=== PATIENT | male | born 1960 | race Caucasian/White ===

== ENCOUNTER → 2016-12-25 | Outpatient (CLI) | payer MEDICARE, OTHER ==
[2016-12-25 11:55] LABS: Appearance,Urine Clear (Clear); Bilirubin,Urine Negative (Negative); Glucose,Urine (UA) Negative (Negative); Ketones,Urine Negative (Negative); Leukocyte Esterase,Urine Negative (Negative); Nitrite,Urine Negative (Negative); PH, Urine 5.5 (5.0-8.0); Protein,Urine Negative (Negative); Specific Gravity,Urine 1.016 (1.001-1.035); UA Billing (MACRO vs. MICRO) CHEM; Urobilinogen,Urine <2.0 mg/dL (<2.0)
== END | disposition home or self-care (01) ==
LOC: LABPAT 10:40
PROVIDERS: ATTEND Orthopaedic Surgery
DX: Z01.812 Encounter for preprocedural laboratory examination (principal)
CPT/HCPCS: 81003; 87070

== ENCOUNTER → 2016-12-29 | Outpatient (CLI) | payer MEDICARE, OTHER ==
[2016-12-29 09:59] LABS: ALT 130 U/L (21-72); AST 62 U/L (17-59); Alkaline Phosphatase 78 U/L (38-126); Anion Gap 14 mmol/L; Blood Urea Nitrogen 11 mg/dL (9-20); Calcium 9.5 mg/dL (8.4-10.2); Carbon Dioxide 27 mmol/L (22-30); Chloride 101 mmol/L (98-107); Glucose 104 mg/dL (74-99); Non-African American GFR(MDRD) >60 (>60 ml/min/1.73 sqM); Potassium 4.5 mmol/L (3.5-5.1); Sodium 142 mmol/L (137-145); Total Bilirubin 1.1 mg/dL (0.2-1.3); Total Protein 7.4 g/dL (6.3-8.2)
[2016-12-29 10:02] LABS: INR 0.9 (<1.1); Prothrombin Time 9.7 sec (9.0-12.0)
[2016-12-29 10:15] LABS: Aty Lym Flag Slight; CH 32.1; CHCM 34.2; HDW 2.54; HGB 16.1 gm/dL (13.0-17.5); MCH 30.9 pg (25.0-35.0); MCHC 32.8 g/dL (31.0-37.0); MCV 94.1 fL (80.0-100.0); Mean Platelet Volume 6.8; RBC 5.21 m/uL (4.30-5.90); RDW 13.4 % (11.5-15.5); WBC 4.5 k/uL (3.8-10.6); WBC (Perox) 4.71
[2016-12-29 10:49] LABS: Add Differential Manual Differential
[2016-12-29 10:51] LABS: Nucleated Red Blood Cells 0 /100 WBC (0-0); Total Cells Counted 100
[2016-12-29 10:53] LABS: RBC Morphology Normal
== END | disposition home or self-care (01) ==
LOC: LABPAT 08:55
PROVIDERS: ATTEND Orthopaedic Surgery
DX: Z01.812 Encounter for preprocedural laboratory examination (principal); Z79.01 Long term (current) use of anticoagulants
CPT/HCPCS: 36415; 80053; 85025; 85610; 85730

== ENCOUNTER 2017-01-02 11:34 | Inpatient (IN) | payer MEDICARE, OTHER ==
[2016-12-21 08:23] VITALS: BMI 31.7
[~2017-01-02 11:34] MED LIST: ACETAMINOPHEN TAB 500 MG TAB PO ONE; DEXAMETHASONE SOD PHOSPHATE 10 MG/ML 1 ML VIAL IV ONE; HYDROmorphone 1 MG/ML 1 ML SYRINGE IVP PRN; MELOXICAM 7.5 MG TAB PO ONE; MIDAZOLAM 2 MG/2 ML VIAL IV PRN; ONDANSETRON 4 MG/2 ML VIAL IVP ONE; SCOPOLAMINE 1.5MG/72HR PATCH TRANSDERM ONE; TRANEXAMIC ACID 1,000 MG in SODIUM CHLORIDE 0.9% 100 ML IVPB ONE; ceFAZolin 2 GM in SODIUM CHLORIDE 0.9% 100 ML IVPB ONE
[2017-01-02] MEDS: LACTATED RINGERS 1,000 ML IV SCH ×2 (12:33→20:22)
[2017-01-02] MEDS ORDERED: LIDOCAINE 1% 20 ML VIAL (10MG/ML) FOR IV START INTRADERMA ONE (12:34)
[2017-01-02] MEDS ORDERED: MIDAZOLAM 2 MG/2 ML VIAL ONE (16:31)
[2017-01-02] MEDS ORDERED: SODIUM CHLORIDE 0.9% 100 ML BAG ONE (16:31)
[2017-01-02] MEDS ORDERED: LIDOCAINE 1% INJ 10MG/ML (20 ML MDV) ONE (16:31)
[2017-01-02] MEDS ORDERED: TRANEXAMIC ACID 1,000 MG/10 ML VIAL ONE (16:31)
[2017-01-02] MEDS ORDERED: fentaNYL (PF) 50 MCG/ML 2 ML AMP ONE (16:31)
[2017-01-02] MEDS ORDERED: diphenhydrAMINE 50 MG/ML 1 ML VIAL ONE (16:31)
[2017-01-02] MEDS ORDERED: PROPOFOL 10 MG/ML 20 ML VIAL IV ONE (16:31)
[2017-01-02] MEDS ORDERED: LACTATED RINGERS 1,000 ML IV ONE ×3 (16:49→17:25)
[2017-01-02] MEDS: ROPIVACAINE 246.25 MG, EPINEPHrine 0.5 MG, KETOROLAC 30 MG, cloNIDine HCL/PF 80 MCG, WA... MISCELLANE ONE ×10 (16:59→17:21)
[2017-01-02] MEDS ORDERED: ceFAZolin 3,000 MG in SODIUM CHLORIDE 0.9% IRRIGATIO 3,000 ML IRRIGATION ONE (17:00)
--- NOTE | 2017-01-02 17:46 | P.OP ---
Date of Procedure: 01/02/17 Preoperative Diagnosis: Severe osteoarthritis left knee Postoperative Diagnosis: Severe osteoarthritis left knee Procedure(s) Performed: Left total knee arthroplasty Implants: Glass and Nephew Oxinium femoral component size 7, left Glass & Nephew Xiao II left nonporous tibial baseplate size 8 Glass & Nephew size 15 mm Legion XLPE dished articular insert, size 7-8 Glass & Nephew Xiao II resurfacing patellar component, 35 mm All components were cemented using Bhupendra bone cement.. The articulation is ceramic on polyethylene. Anesthesia: spinal Surgeon: Faraz Cabral Chief Investigator #1: Arlyn Bacon Estimated Blood Loss (ml): 50 Pathology: other (Bone and cartilage) Condition: stable Disposition: PACU Indications for Procedure: After failure of conservative treatment we discussed the surgical and nonsurgical treatment options at length. Patient wishes to proceed with a total knee arthroplasty. Complications specific to this procedure were discussed at length, including but not limited to infection, bleeding, stiffness , and nerve injury. Patient is aware of all these complications and informed consent was obtained Operative Findings: The operative findings are consistent with severe osteoarthritis the left knee Description of Procedure: Patient was seen in the preoperative area consent was reviewed and operative site was marked with a skin marker. Patient was then brought to the operating room and given preoperative antibiotics intravenously. A spinal anesthetic was administered by the anesthesia department. A tourniquet was placed on the upper thigh and the lower extremity was prepped and draped in usual sterile fashion. A gram of transexamic acid was given. A universal timeout was then performed which confirmed the patient's name, surgical site, ALLERGIES, and consent. The lower extremity was then exsanguinated and tourniquet was inflated to 250 mmHg. A standard and anterior midline approach to the knee was performed. The skin and subcutaneous tissue was dissected down to the patellar tendon. A medial parapatellar arthrotomy was then performed. The knee was then extended, the patellar was everted, and the knee was again flexed. Anterior horns of both menisci were excised, and a release was performed to the posterior medial aspect of the knee. On gross visual inspection, there was complete loss of articular cartilage in the medial and patellofemoral joint spaces. There was also significant cartilage damage in the lateral compartment. There were multiple periarticular osteophytes which were then removed with a Ronguer. The femoral canal was then opened with the appropriate drill, and the intramedullary femoral cutting guide was then placed and set for 4 of valgus. The distal femoral cutting block was then pinned in place, and the distal femur was then cut. The cutting block was then removed and the cut was checked for flatness. Next, the sizing guide was then placed and set for 3 external rotation based off of the epicondylar axis and Whitesides line. After the femur was sized, the appropriate 4-in-1 cutting block was then pinned in place. The anterior condyles were cut without notching. The posterior and chamfer cuts were performed while protecting the collateral ligaments. The cutting block was then removed, and the femoral canal was plugged with autologous bone. Attention was then directed to the tibia. The remaining ACL was removed with a Ronguer, and the tibia was then gently subluxed forward with a large bent knee retractor. Any remaining menisci was excised. The posterior lateral corner was cauterized in order to cauterize the lateral geniculate artery. The extra medullary tibial cutting guide was then placed, set for the appropriate rotation , slope, and depth of resection. The proximal tibia cutting guide was then pinned in place. Proximal tibia was then cut and sized. Next trials were then placed with the appropriate-sized insert. The knee was able to fully extend and flex to 130 and was stable throughout all range of motion. The knee was then extended, patella everted. Patella was then measured, and then using an osteotomy guide, the patella was cut at the appropriate level. The patella was then measured and drilled and the patella trial was then placed. The knee was then taken through range of motion with the patella trial and the patella tracked normally. The knee was then extended patella trial was then removed and the patella was everted. Knee was then flexed and lug holes were drilled through the femoral trial and the femoral trial was then removed. The tibial was then exposed, and the tibial broach guide was then pinned in place after it was set for the appropriate rotation to allow for the most coverage without overhang. The tibia was then broached. The cut surfaces of bone were then irrigated with pulsatile lavage. The posterior structures were injected with the ropivacaine solution. The components were then opened, the cement was mixed, and the components were then cemented in place. The cement was allowed to harden with the knee in full extension. While the cement was hardening, the remaining soft tissues were injected with the ropivacaine solution. After the cemented hardened. The tourniquet was released, and hemostasis was obtained. A second gram of transexamic acid was given. The knee was again irrigated. The knee was again taken through range of motion and found to be stable throughout all range of motion of 0-130, and the patella tracked normally. The fascia was then closed with #2 strata fix suture. The subcutaneous tissue was closed with 3-0 Vicryl and 3-0 strata fix. Dermabond tape was used for the skin, and the patient was placed in a sterile dressing. Patient was then transferred to recovery room in stable condition. The administrative personal assistant MARK Spicer was required due the complexity surgery and the need for a skilled surgical sales representative. She assisted in positioning, draping , retraction, and closure of the wound.
[2017-01-02] MEDS ORDERED: DIAZEPAM 5 MG TAB PO PRN ×2 (18:33)
[2017-01-02] MEDS ORDERED: NALOXONE 0.4 MG/ML 1 ML VIAL IV PRN (18:33)
[2017-01-02] MEDS ORDERED: MAGNESIUM HYDROXIDE 2,400 MG/10 ML CUP PO PRN (18:33)
[2017-01-02] MEDS ORDERED: BISACODYL 10 MG SUPP RECTAL PRN (18:33)
[2017-01-02] MEDS ORDERED: ONDANSETRON 4 MG/2 ML VIAL IVP PRN (18:33)
[2017-01-02] MEDS ORDERED: HYDROcodone/APAP 5-325MG 1 EACH TAB PO PRN (18:33)
[2017-01-02] MEDS ORDERED: HYDROmorphone 1 MG/ML 1 ML SYRINGE IVP PRN ×3 (18:33)
--- NOTE | 2017-01-02 19:14 | XR ---
EXAMINATION TYPE: XR knee limited LT DATE OF EXAM: 01/02/2017 6:49 PM COMPARISON: None HISTORY: Postop TECHNIQUE: 2 views FINDINGS: There is a left total knee prosthesis. Components appear in anatomic position. IMPRESSION: No complicating process seen.
[2017-01-02] MEDS: SENNOSIDES-DOCUSATE SODIUM 1 EACH TAB PO SCH (20:11)
[2017-01-02] MEDS: ASPIRIN 325 MG TAB PO SCH (20:11)
[2017-01-02] MEDS: SODIUM CHLORIDE 0.9% 1,000 ML IV SCH (21:27)
[2017-01-03] MEDS: ceFAZolin 2 GM in SODIUM CHLORIDE 0.9% 100 ML IVPB SCH ×2 (00:15→09:30)
[2017-01-03] MEDS: HYDROcodone/APAP 5-325MG 1 EACH TAB PO PRN ×4 (04:52→22:57)
[2017-01-03] MEDS: SODIUM CHLORIDE 0.9% 1,000 ML IV SCH ×2 (06:03→15:44)
[2017-01-03 07:58] LABS: Basophils % (A) 0 %; CHCM 34.8; Eosinophils % (A) 0 %; HDW 2.59; HGB 13.3 gm/dL (13.0-17.5); Luc # (Auto) 0.09; Luc % (Auto) 1; Lymphocytes % (A) 10 %; MCH 30.7 pg (25.0-35.0); MCHC 33.2 g/dL (31.0-37.0); MCV 92.3 fL (80.0-100.0); Mean Platelet Volume 7.9; Monocytes # (A) 0.6 k/uL (0-1.0); Monocytes % (A) 5 %; Neutrophils # (A) 9.1 k/uL (1.3-7.7); Neutrophils % (A) 84 %; RBC 4.33 m/uL (4.30-5.90); WBC 10.8 k/uL (3.8-10.6); WBC (Perox) 11.18
[2017-01-03] MEDS: MELOXICAM 7.5 MG TAB PO SCH (09:30)
[2017-01-03] MEDS: ASPIRIN 325 MG TAB PO SCH ×2 (09:30→20:58)
--- NOTE | 2017-01-03 10:48 | P.PN ---
Subjective Principal diagnosis: Status post left total knee arthroplasty This is a pleasant 56-year-old gentleman who is status post left total knee arthroplasty. Today's postoperative day #1. Patient states that he has minimal pain at rest. He's been up ambulating had increased pain with weightbearing. He otherwise is doing well. He has no other complaints this time. Objective - Vital Signs Vital signs: Vital Signs Temp 97.6 F 01/03/17 07:00 Pulse 51 L 01/03/17 08:00 Resp 16 01/03/17 08:00 BP 130/76 01/03/17 07:00 Pulse Ox 95 01/03/17 07:00 Intake & Output 01/02/17 01/03/17 01/03/17 18:59 06:59 18:59 Intake Total 5600 1100 Output Total 50 Balance 5550 1100 Weight 100.244 kg 100.244 kg Intake: IV 5600 1100 Sodium Chloride 0.9% 1, 900 000 ml @ 100 mls/hr IV . Q10H STACIE Rx#:[id number] ceFAZolin 2 gm In Sodium 200 Chloride 0.9% 100 ml @ 100 mls/hr IVPB ONCE ONE Rx#:[id number] Output: Estimated Blood Loss 50 Other: Voiding Method Urinal Urinal # Voids 1 # Bowel Movements 1 - Exam The patient does not appear in acute distress. Alert and orientated 3. Dressing is clean dry and intact. Incision appears fine with no erythema or active drainage. Calf is soft and nontender. Good foot and ankle motion without difficulty. Sensation and circulatory status is intact. - Labs CBC & Chem 7: 01/03/17 07:14 Labs: Abnormal Lab Results - Last 24 Hours (Table) 01/03/17 Range/Units 07:14 WBC 10.8 H (3.8-10.6) k/uL Neutrophils # 9.1 H (1.3-7.7) k/uL Assessment and Plan (1) Primary osteoarthritis of left knee Status: Acute (2) Status post left knee replacement Status: Acute Plan: 1. Continue with routine postoperative care. 2. Anticoagulation with aspirin. 3. Physical therapy and CPM today. 4. Appreciate input from medicine. 5. Anticipate discharge to home with home care likely tomorrow.
--- NOTE | 2017-01-03 15:30 | P.CONS ---
History of Present Illness - Reason for Consult Consult date: 01/03/17 Medical management - History of Present Illness This is a 56-year-old male patient of Dr. Norberto Maurer with a past medical history of TIA, hyperlipidemia, myocardial infarction 3, peptic ulcer disease, rheumatoid arthritis, subdural hematoma, tobacco use and dependence. He has had ongoing problems with pain to the left knee and has been brought in under the care of Dr. Faraz Cabral and is status post a left total knee arthroplasty. He has had no postop complications. Pain is currently well controlled. Review of Systems All systems: negative Constitutional: Reports chronic pain, Denies chills, Denies fever Eyes: denies blurred vision, denies pain Ears, nose, mouth and throat: Denies headache, Denies sore throat Cardiovascular: Denies chest pain, Denies shortness of breath Respiratory: Denies cough Gastrointestinal: Denies abdominal pain, Denies diarrhea, Denies nausea, Denies vomiting Musculoskeletal: Denies myalgias Musculoskeletal: left: knee pain Integumentary: Denies pruritus, Denies rash Neurological: Denies numbness, Denies weakness Psychiatric: Denies anxiety, Denies depression Endocrine: Denies fatigue, Denies weight change Past Medical History Past Medical History: CVA/TIA, Hyperlipidemia, Myocardial Infarction ([place]), Rheumatoid Arthritis ([place]) Additional Past Medical History / Comment(s): TIA, [place] x 3, peptic ulcer disease Last Myocardial Infarction Date:: unknown History of Any Multi-Drug Resistant Organisms: None Reported Past Surgical History: Appendectomy, Heart Catheterization Additional Past Surgical History / Comment(s): 13 reconstructive hand surgerys- rt hand, rt knee open ligament repair surgery, subdural hematoma, cornea transplant left eye, colonoscopy Past Anesthesia/Blood Transfusion Reactions: No Reported Reaction Past Psychological History: No Psychological Hx Reported Smoking Status: Current some day smoker Past Alcohol Use History: Occasional Additional Past Alcohol Use History / Comment(s): occ cigar- started smoking age 14. He states he smokes a cigar about 1 time every 3 weeks. He denies any medical marijuana, marijuana, street drug use. He states he drinks a beer every couple of days. He is currently living with his girlfriend. He uses a cane for ambulation. He does not have home O2, nebulizer, CPAP at home. Past Drug Use History: None Reported - Past Family History Father Family Medical History: Cancer Additional Family Medical History / Comment(s): Father at age 73 from pancreatic cancer. Mother Family Medical History: Unable to Obtain Additional Family Medical History / Comment(s): Mother in her 80s with history of hypertension. Brother(s) Additional Family Medical History / Comment(s): He has brothers with no major medical problems. Sister(s) Additional Family Medical History / Comment(s): He has one sister with history of hypertension and obesity. Daughter(s) Additional Family Medical History / Comment(s): Patient has one daughter with no major medical problems. Medications and Allergies Home Medications Medication Instructions Recorded Confirmed Type Aspirin 325 mg PO DAILY 12/21/16 01/02/17 History Atorvastatin [Lipitor] 40 mg PO PC-SUPPER 12/21/16 01/02/17 History Omeprazole 20 mg PO DAILY 12/21/16 01/02/17 History Allergies Allergy/AdvReac Type Severity Reaction Status Date / Time No Known Allergies Allergy Verified 01/02/17 12:06 Physical Exam Vitals: Vital Signs Temp Pulse Pulse Pulse Pulse Resp BP 01/03/17 08:00 51 L 53 L 16 01/03/17 07:00 97.6 F 51 L 16 130/76 01/03/17 03:14 97.5 F L 53 L 18 126/65 01/02/17 21:15 51 L 130/65 01/02/17 21:00 52 L 116/69 01/02/17 20:45 60 126/73 01/02/17 20:30 63 139/73 01/02/17 20:24 01/02/17 20:15 56 L 133/74 01/02/17 20:00 50 L 143/74 01/02/17 19:45 49 L 125/75 01/02/17 19:30 97.5 F L 50 L 18 132/75 01/02/17 18:55 50 L 18 145/72 01/02/17 18:30 49 L 18 140/64 01/02/17 18:14 47 L 14 116/65 01/02/17 18:05 97.4 F L 48 L 14 124/70 01/02/17 12:26 98.1 F 55 L 20 139/90 Pulse Ox 01/03/17 08:00 01/03/17 07:00 95 01/03/17 03:14 93 L 01/02/17 21:15 01/02/17 21:00 01/02/17 20:45 01/02/17 20:30 01/02/17 20:24 97 01/02/17 20:15 01/02/17 20:00 01/02/17 19:45 01/02/17 19:30 96 01/02/17 18:55 93 L 01/02/17 18:30 94 L 01/02/17 18:14 97 01/02/17 18:05 97 01/02/17 12:26 93 L Intake and Output 01/02/17 01/03/17 01/03/17 22:59 06:59 14:59 Intake Total 4800 1100 Output Total 50 Balance 4750 1100 Intake: IV 4800 1100 Sodium Chloride 0.9% 1, 900 000 ml @ 100 mls/hr IV . Q10H STACIE Rx#:[id number] ceFAZolin 2 gm In Sodium 200 Chloride 0.9% 100 ml @ 100 mls/hr IVPB ONCE ONE Rx#:[id number] Output: Estimated Blood Loss 50 Other: Voiding Method Urinal Urinal # Voids 1 # Bowel Movements 1 Weight 100.244 kg 100.244 kg Patient Weight 01/04/17 06:59 Weight 100.244 kg Gen: This is a 56-year-old male. He is in bed with left leg elevated. He appears to be in no acute distress. HEENT: Head is atraumatic, normocephalic. Pupils equal, round. Sclerae is anicteric. NECK: Supple. No JVD. No lymphadenopathy. No thyromegaly. LUNGS: Clear to auscultation. No wheezes or rhonchi. No intercostal retractions. HEART: Regular rate and rhythm. No murmur. ABDOMEN: Soft. Bowel sounds are present. No masses. No tenderness. EXTREMITIES: No pedal edema. No calf tenderness. Dressing in place to the left leg. NEUROLOGICAL: Patient is awake, alert and oriented x3. Cranial nerves 2 through 12 are grossly intact. Results Results: Laboratory Results WBC 10.8 k/uL (3.8-10.6) H 01/03/17 07:14 RBC 4.33 m/uL (4.30-5.90) 01/03/17 07:14 Hgb 13.3 gm/dL (13.0-17.5) 01/03/17 07:14 Hct 40.0 % (39.0-53.0) 01/03/17 07:14 MCV 92.3 fL (80.0-100.0) 01/03/17 07:14 MCH 30.7 pg (25.0-35.0) 01/03/17 07:14 MCHC 33.2 g/dL (31.0-37.0) 01/03/17 07:14 RDW 13.0 % (11.5-15.5) 01/03/17 07:14 Plt Count 218 k/uL (150-450) 01/03/17 07:14 Neutrophils % 84 % 01/03/17 07:14 Lymphocytes % 10 % 01/03/17 07:14 Monocytes % 5 % 01/03/17 07:14 Eosinophils % 0 % 01/03/17 07:14 Basophils % 0 % 01/03/17 07:14 Neutrophils # 9.1 k/uL (1.3-7.7) H 01/03/17 07:14 Lymphocytes # 1.0 k/uL (1.0-4.8) 01/03/17 07:14 Monocytes # 0.6 k/uL (0-1.0) 01/03/17 07:14 Eosinophils # 0.0 k/uL (0-0.7) 01/03/17 07:14 Basophils # 0.0 k/uL (0-0.2) 01/03/17 07:14 CBC & Chem 7: 01/03/17 07:14 Labs: Abnormal Lab Results - Last 24 Hours (Table) 01/03/17 Range/Units 07:14 WBC 10.8 H (3.8-10.6) k/uL Neutrophils # 9.1 H (1.3-7.7) k/uL Assessment and Plan Plan: 1. Severe osteoarthritis status post left total knee arthroplasty. Continue current plan per orthopedic surgeon. Continue current pain management. He is on full-strength aspirin twice daily for DVT prophylaxis. Continue incentive spirometry to reduce incidence of atelectasis and hospital-acquired pneumonia. PT/OT per orthopedics. 2. Hyperlipidemia. Continue Lipitor 40 mg. 3. Gastroesophageal reflux disease and gastrointestinal prophylaxis. Continue omeprazole. 4. Rheumatoid arthritis, stable. 5. History of myocardial infarction. Continue aspirin and Lipitor. Once patient has completed course of aspirin 325 mg twice daily, patient to resume aspirin daily. 6. History of TIA, stable. 7. DVT prophylaxis. Aspirin 325 mg twice daily. 8. Pulmonary prophylaxis. Incentive spirometry. Discharge plan:home Impression and plan of care have been directed as dictated by the signing physician. Erika Brown nurse practitioner acting as scribe for signing physician. Time with Patient: Greater than 30
[2017-01-03] MEDS: LACTATED RINGERS 1,000 ML IV SCH (15:45)
[2017-01-03] MEDS: hydrOXYzine PAMOATE 25 MG CAP PO PRN ×2 (16:25→22:58)
[2017-01-03] MEDS: SENNOSIDES-DOCUSATE SODIUM 1 EACH TAB PO SCH (20:58)
[2017-01-03 21:41] VITALS: RESP 16
[2017-01-04] MEDS: SODIUM CHLORIDE 0.9% 1,000 ML IV SCH ×2 (00:43→08:30)
[2017-01-04] MEDS: hydrOXYzine PAMOATE 25 MG CAP PO PRN ×2 (04:27→10:16)
[2017-01-04] MEDS: HYDROcodone/APAP 5-325MG 1 EACH TAB PO PRN ×2 (04:27→10:16)
[2017-01-04 07:09] VITALS: BP 143/84; PULSE 60; TEMP 98.4
[2017-01-04] MEDS ORDERED: PANTOPRAZOLE 40 MG TABLET PO SCH (07:30)
[2017-01-04] MEDS: MELOXICAM 7.5 MG TAB PO SCH (08:29)
[2017-01-04] MEDS: ASPIRIN 325 MG TAB PO SCH (08:30)
--- NOTE | 2017-01-04 09:09 | P.DS ---
Providers Date of admission: 01/02/17 11:58 Expected date of discharge: 01/04/17 Attending physician: Farza Cabral Consults: 01/02/17 18:33 Consult Physician Routine Consulting Provider: Anne-Marie Peoples Consult Reason/Comments: medical management Do you want consulting provider notified?: Yes Primary care physician: Norberto Maurer - Discharge Diagnosis(es) (1) Primary osteoarthritis of left knee Current Visit: Yes Status: Acute (2) Status post left knee replacement Current Visit: Yes Status: Acute Hospital Course: This is a pleasant 56-year-old male last seen in our office with complaints of left knee pain. Patient has known history of degenerative arthritis of the left knee and presented to discuss options. After discussion and consideration , the patient elected to proceed with a left total knee arthroplasty. Patient was seen preoperatively, and medically cleared for surgery by Dr. Maurer. Patient was admitted to [facility] underwent left total knee arthroplasty on 01/02/[address] Faraz Cabral. The procedure was performed without complications or sequelae. The patient is seen and evaluated at bedside today. Pain is well-controlled. Patient has no new complaints today and denies any fevers, chills, nausea, vomiting, or shortness of breath. Vital signs are stable. Dressing is clean dry and intact. Incision looks fine with no erythema or active drainage. Calf is soft and nontender. Patient has full foot and ankle motion without difficulty. Patient's left lower extremity is neurovascularly intact. The patient is orthopedically stable for discharge home today. Pertinent Studies: Laboratory Tests 01/03/17 07:14 WBC 10.8 H RBC 4.33 Hgb 13.3 Patient Condition at Discharge: Stable Plan - Discharge Summary New Discharge Prescriptions: Aspirin 325 mg PO BID #60 tab HYDROcodone/APAP 5-325MG [[place] 5-325] 1 - 2 each PO Q4-6H PRN #90 tab PRN Reason: Pain Sennosides-Docusate Sodium [Senokot-S] 1 tab PO BID #60 tablet Discharge Medication List Aspirin 325 mg PO DAILY 12/21/16 [History] Atorvastatin [Lipitor] 40 mg PO PC-SUPPER 12/21/16 [History] Omeprazole 20 mg PO DAILY 12/21/16 [History] Aspirin 325 mg PO BID #60 tab 01/03/17 [Rx] HYDROcodone/APAP 5-325MG [[place] 5-325] 1 - 2 each PO Q4-6H PRN #90 tab 01/03/17 [Rx] Sennosides-Docusate Sodium [Senokot-S] 1 tab PO BID #60 tablet 01/03/17 [Rx] Follow up Appointment(s)/Referral(s): Norberto Maurer MD [Primary Care Provider] - 1 Week Faraz Cabral DO [Doctor of Osteopathic Medicine] - 01/19/17 9:00 am Ambulatory/Diagnostic Orders: Continuous Passive Motion (CPM) Machine [DME.AMB1] Time Frame: 3 Weeks, Facility : [facility], Location: Case Management Walker [DME.AMB1] Location: Determined By Patient Activity/Diet/Wound Care/Special Instructions: May bear weight as tolerated with walker. May shower if no drainage from incision. CPM 5-6 hours daily. [facility] with questions or concerns [phone] pt refused home care and has set up out patient physical therapy in [place] Discharge Disposition: HOME WITH HOME HEALTH SERVICES
--- NOTE | 2017-01-04 11:28 | P.PN ---
Subjective This is a 56-year-old male patient of Dr. Norberto Maurer with a past medical history of TIA, hyperlipidemia, myocardial infarction 3, peptic ulcer disease, rheumatoid arthritis, subdural hematoma, tobacco use and dependence. He has had ongoing problems with pain to the left knee and has been brought in under the care of Dr. Faraz Cabral and is status post a left total knee arthroplasty. He has had no postop complications. Pain is currently well controlled. Patient has done well postoperatively. He complains of his legs feeling stiff today. Encouraged to continue ice to the knee. He is scheduled for discharge home today. Objective - Vital Signs Vital signs: Vital Signs Temp 98.4 F 01/04/17 07:00 Pulse 60 01/04/17 07:00 Resp 16 01/04/17 07:00 BP 143/84 01/04/17 07:00 Pulse Ox 96 01/04/17 08:42 Intake & Output 01/03/17 01/04/17 01/04/17 18:59 06:59 18:59 Intake Total 1060 120 Balance 1060 120 Weight 100.244 kg Intake: IV 300 Sodium Chloride 0.9% 1, 300 000 ml @ 100 mls/hr IV . Q10H STACIE Rx#:[id number] Oral 760 120 Other: Voiding Method Urinal Toilet Urinal # Voids 2 2 # Bowel Movements 1 - Exam Gen: This is a 56-year-old male. He is in bed with left leg elevated. He appears to be in no acute distress. HEENT: Head is atraumatic, normocephalic. Pupils equal, round. Sclerae is anicteric. NECK: Supple. No JVD. No lymphadenopathy. No thyromegaly. LUNGS: Clear to auscultation. No wheezes or rhonchi. No intercostal retractions. HEART: Regular rate and rhythm. No murmur. ABDOMEN: Soft. Bowel sounds are present. No masses. No tenderness. EXTREMITIES: No pedal edema. No calf tenderness. Dressing in place to the left leg. NEUROLOGICAL: Patient is awake, alert and oriented x3. Cranial nerves 2 through 12 are grossly intact. - Labs CBC & Chem 7: 01/03/17 07:14 Assessment and Plan Plan: 1. Severe osteoarthritis status post left total knee arthroplasty. Continue current plan per orthopedic surgeon. Continue current pain management. He is on full-strength aspirin twice daily for DVT prophylaxis. Continue incentive spirometry to reduce incidence of atelectasis and hospital-acquired pneumonia. PT/OT per orthopedics. 2. Hyperlipidemia. Continue Lipitor 40 mg. 3. Gastroesophageal reflux disease and gastrointestinal prophylaxis. Continue omeprazole. 4. Rheumatoid arthritis, stable. 5. History of myocardial infarction. Continue aspirin and Lipitor. Once patient has completed course of aspirin 325 mg twice daily, patient to resume aspirin daily. 6. History of TIA, stable. 7. DVT prophylaxis. Aspirin 325 mg twice daily. 8. Pulmonary prophylaxis. Incentive spirometry. Discharge plan:home Impression and plan of care have been directed as dictated by the signing physician. Erika Brown nurse practitioner acting as scribe for signing physician. Time with Patient: Greater than 30
== END 2017-01-04 11:01 | disposition home health service (06) | DRG 470 ==
LOC: 2ORMAIN 11:58 → 3SUR 18:02
PROVIDERS: ADMIT Orthopaedic Surgery; ATTEND Orthopaedic Surgery
PROC: 0SRD0J9 Replacement of Left Knee Joint with Synthetic Substitute, Cemented, Open Approach (ICD-10-PCS; principal; 2017-01-02 13:30)
DX: M17.12 Unilateral primary osteoarthritis, left knee (principal); M06.9 Rheumatoid arthritis, unspecified; E78.5 Hyperlipidemia, unspecified; F17.200 Nicotine dependence, unspecified, uncomplicated; I25.2 Old myocardial infarction; Z79.82 Long term (current) use of aspirin; Z79.899 Other long term (current) drug therapy; Z82.49 Family history of ischemic heart disease and other diseases of the circulatory system
CPT/HCPCS: 85025; 88300; 94760

== ENCOUNTER → 2017-12-14 | Outpatient (CLI) | payer MEDICARE, OTHER ==
[2017-12-14 14:08] LABS: Basophils # (A) 0.1 k/uL (0-0.2); Basophils % (A) 1 %; Eosinophils # (A) 0.2 k/uL (0-0.7); Eosinophils % (A) 3 %; HGB 16.3 gm/dL (13.0-17.5); Lymphocytes # (A) 1.9 k/uL (1.0-4.8); Lymphocytes % (A) 30 %; MCH 30.7 pg (25.0-35.0); MCV 90.5 fL (80.0-100.0); Mean Platelet Volume 7.5; Monocytes # (A) 0.4 k/uL (0-1.0); Monocytes % (A) 6 %; Neutrophils # (A) 3.7 k/uL (1.3-7.7); Neutrophils % (A) 59 %; Platelet Count 225 k/uL (150-450); RBC 5.31 m/uL (4.30-5.90); RDW 12.8 % (11.5-15.5); WBC 6.3 k/uL (3.8-10.6)
[2017-12-14 14:35] LABS: PSA Annual Screen 1.31 ng/mL (0.00-4.00)
[2017-12-14 22:55] LABS: Hemoglobin A1C 5.7 % (4.0-6.0)
== END | disposition home or self-care (01) ==
LOC: LABWHC1 12:34
PROVIDERS: ATTEND Nurse Practitioner Primary Care
DX: I25.10 Atherosclerotic heart disease of native coronary artery without angina pectoris (principal); E78.5 Hyperlipidemia, unspecified; I63.019 Cerebral infarction due to thrombosis of unspecified vertebral artery; R39.12 Poor urinary stream; R73.09 Other abnormal glucose; Z12.5 Encounter for screening for malignant neoplasm of prostate
CPT/HCPCS: 80061; 84443; 85025; 83036; 36415; G0103

== ENCOUNTER → 2017-12-14 | Outpatient (CLI) | payer MEDICARE, OTHER ==
[2017-12-14 13:59] LABS: ALT 77 U/L (21-72); AST 32 U/L (17-59); Albumin 4.8 g/dL (3.5-5.0); Alkaline Phosphatase 69 U/L (38-126); Anion Gap 12 mmol/L; Blood Urea Nitrogen 14 mg/dL (9-20); Calcium 10.6 mg/dL (8.4-10.2); Carbon Dioxide 30 mmol/L (22-30); Chloride 101 mmol/L (98-107); Glucose 105 mg/dL (74-99); Sodium 143 mmol/L (137-145); Total Bilirubin 0.7 mg/dL (0.2-1.3); Total Protein 7.3 g/dL (6.3-8.2)
[2017-12-14 14:00] LABS: Appearance,Urine Clear (Clear); Bilirubin,Urine Negative (Negative); Blood,Urine Negative (Negative); Color,Urine Yellow; Glucose,Urine (UA) Negative (Negative); Ketones,Urine Negative (Negative); Leukocyte Esterase,Urine Negative (Negative); Nitrite,Urine Negative (Negative); Protein,Urine Negative (Negative); Specific Gravity,Urine 1.009 (1.001-1.035); Urobilinogen,Urine <2.0 mg/dL (<2.0)
[2017-12-14 14:10] LABS: Partial Thromboplastin Time 22.2 sec (22.0-30.0); Prothrombin Time 9.7 sec (9.0-12.0)
[2017-12-14 14:12] LABS: Potassium 4.6 mmol/L (3.5-5.1)
== END | disposition home or self-care (01) ==
LOC: LABPAT 12:31
PROVIDERS: ATTEND Orthopaedic Surgery
DX: Z01.818 Encounter for other preprocedural examination (principal); Z01.812 Encounter for preprocedural laboratory examination; M17.11 Unilateral primary osteoarthritis, right knee
CPT/HCPCS: 80053; 81003; 85610; 85730; 87070

== ENCOUNTER 2017-12-25 11:23 | Inpatient (IN) | payer MEDICARE, OTHER ==
[2017-12-18 11:28] VITALS: BMI 32.1
[~2017-12-25 11:23] MED LIST changes: -HYDROmorphone 1 MG/ML 1 ML SYRINGE IVP PRN; +MORPHINE SULFATE 4 MG/ML SYRINGE IV PRN; +ROPIVACAINE 246.25 MG, EPINEPHrine 0.5 MG, KETOROLAC 30 MG, cloNIDine HCL/PF 80 MCG, WA... MISCELLANE ONE; -TRANEXAMIC ACID 1,000 MG in SODIUM CHLORIDE 0.9% 100 ML IVPB ONE; +TRANEXAMIC ACID 1,000 MG in SODIUM CHLORIDE 0.9% 50 ML IVPB ONE; -ceFAZolin 2 GM in SODIUM CHLORIDE 0.9% 100 ML IVPB ONE; +ceFAZolin IN SWFI 2 GM/20 ML SYRINGE IVP ONE
[2017-12-25] MEDS: LACTATED RINGERS 1,000 ML IV SCH (13:23)
[2017-12-25] MEDS ORDERED: LIDOCAINE 1% 20 ML VIAL (10MG/ML) FOR IV START INTRADERMA ONE (13:24)
[2017-12-25] MEDS ORDERED: NALOXONE 0.4 MG/ML 1 ML VIAL IV PRN (13:43)
[2017-12-25] MEDS ORDERED: MAGNESIUM HYDROXIDE 2,400 MG/10 ML CUP PO PRN (13:43)
[2017-12-25] MEDS ORDERED: HYDROmorphone 2 MG/ML 1 ML SYRINGE IVP PRN ×3 (13:43)
[2017-12-25] MEDS ORDERED: NA PHOS,M-B/NA PHOS,DI-BA 133 ML ENEMA RECTAL PRN (13:43)
[2017-12-25] MEDS ORDERED: DIAZEPAM 5 MG TAB PO PRN ×2 (13:43)
[2017-12-25] MEDS ORDERED: HYDROcodone/APAP 7.5-325MG 1 EACH TAB PO PRN ×2 (13:43)
[2017-12-25] MEDS ORDERED: BISACODYL 10 MG SUPP RECTAL PRN (13:43)
[2017-12-25] MEDS ORDERED: ONDANSETRON 4 MG/2 ML VIAL IVP PRN (13:43)
[2017-12-25] MEDS ORDERED: hydrOXYzine PAMOATE 25 MG CAP PO PRN (13:43)
[2017-12-25] MEDS ORDERED: GLYCOPYRROLATE 0.2 MG/ML 2 ML VIAL ONE (15:26)
[2017-12-25] MEDS ORDERED: TRANEXAMIC ACID 1,000 MG/10 ML VIAL ONE (15:26)
[2017-12-25] MEDS ORDERED: MIDAZOLAM 2 MG/2 ML VIAL ONE (15:26)
[2017-12-25] MEDS ORDERED: ePHEDrine SULFATE/0.9% NACL/PF 50 MG/5 ML SYRINGE IV ONE (15:26)
[2017-12-25] MEDS ORDERED: SODIUM CHLORIDE 0.9% 100 ML BAG ONE (15:26)
[2017-12-25] MEDS ORDERED: fentaNYL (PF) 50 MCG/ML 2 ML AMP ONE (15:26)
[2017-12-25] MEDS ORDERED: PROPOFOL 10 MG/ML 20 ML VIAL IV ONE (15:26)
[2017-12-25] MEDS ORDERED: ceFAZolin 1,000 MG in SODIUM CHLORIDE 0.9% 1,000 ML IRRIGATION ONE (15:58)
[2017-12-25] MEDS ORDERED: LACTATED RINGERS 1,000 ML IV ONE (16:02)
--- NOTE | 2017-12-25 16:37 | P.OP ---
Date of Procedure: 12/25/17 Preoperative Diagnosis: Severe osteoarthritis right knee Postoperative Diagnosis: Severe osteoarthritis right knee Procedure(s) Performed: Right total knee arthroplasty Implants: Glass and Nephew Oxinium femoral component size 7, right Glass & Nephew Xiao II right nonporous tibial baseplate size 7 Glass & Nephew size 9 mm Legion XLPE dished articular insert, size 7-8 Glass & Nephew Xiao II resurfacing patellar component, 35 mm All components were cemented using Bhupendra bone cement.. The articulation is Oxinium on polyethylene. Anesthesia: spinal Surgeon: Faraz Cabral Medical Dermatologist #1: Vibha Meza Estimated Blood Loss (ml): 50 Pathology: other (Bone and cartilage) Condition: stable Disposition: PACU Indications for Procedure: After failure of conservative treatment we discussed the surgical and nonsurgical treatment options at length. Patient wishes to proceed with a total knee arthroplasty. Complications specific to this procedure were discussed at length, including but not limited to infection, bleeding, stiffness , and nerve injury. Patient is aware of all these complications and informed consent was obtained Operative Findings: The operative findings are consistent with severe osteoarthritis of the right knee Description of Procedure: Patient was seen in the preoperative area consent was reviewed and operative site was marked with a skin marker. Patient was then brought to the operating room and given preoperative antibiotics intravenously. A spinal anesthetic was administered by the anesthesia department. A tourniquet was placed on the upper thigh and the lower extremity was prepped and draped in usual sterile fashion. A gram of transexamic acid was given. A universal timeout was then performed which confirmed the patient's name, surgical site, ALLERGIES, and consent. The lower extremity was then exsanguinated and tourniquet was inflated to 250 mmHg. A standard and anterior midline approach to the knee was performed. The skin and subcutaneous tissue was dissected down to the patellar tendon. A medial parapatellar arthrotomy was then performed. The knee was then extended, the patellar was everted, and the knee was again flexed. Anterior horns of both menisci were excised, and a release was performed to the posterior medial aspect of the knee. On gross visual inspection, there was complete loss of articular cartilage in the medial and patellofemoral joint spaces. There was also significant cartilage damage in the lateral compartment. There were multiple periarticular osteophytes which were then removed with a Ronguer. The femoral canal was then opened with the appropriate drill, and the intramedullary femoral cutting guide was then placed and set for 4 of valgus. The distal femoral cutting block was then pinned in place, and the distal femur was then cut. The cutting block was then removed and the cut was checked for flatness. Next, the sizing guide was then placed and set for 3 external rotation based off of the epicondylar axis and Whitesides line. After the femur was sized, the appropriate 4-in-1 cutting block was then pinned in place. The anterior condyles were cut without notching. The posterior and chamfer cuts were performed while protecting the collateral ligaments. The cutting block was then removed, and the femoral canal was plugged with autologous bone. Attention was then directed to the tibia. The remaining ACL was removed with a Ronguer, and the tibia was then gently subluxed forward with a large bent knee retractor. Any remaining menisci was excised. The posterior lateral corner was cauterized in order to cauterize the lateral geniculate artery. The extra medullary tibial cutting guide was then placed, set for the appropriate rotation , slope, and depth of resection. The proximal tibia cutting guide was then pinned in place. Proximal tibia was then cut and sized. Next trials were then placed with the appropriate-sized insert. The knee was able to fully extend and flex to 130 and was stable throughout all range of motion. The knee was then extended, patella everted. Patella was then measured, and then using an osteotomy guide, the patella was cut at the appropriate level. The patella was then measured and drilled and the patella trial was then placed. The knee was then taken through range of motion with the patella trial and the patella tracked normally. The knee was then extended patella trial was then removed and the patella was everted. Knee was then flexed and lug holes were drilled through the femoral trial and the femoral trial was then removed. The tibial was then exposed, and the tibial broach guide was then pinned in place after it was set for the appropriate rotation to allow for the most coverage without overhang. The tibia was then reamed and broached. The cut surfaces of bone were then irrigated with pulsatile lavage. The posterior structures were injected with the ropivacaine solution. The knee was also irrigated with Irrisept solution. The components were then opened, the cement was mixed, and the components were then cemented in place. The cement was allowed to harden with the knee in full extension. While the cement was hardening, the remaining soft tissues were then injected with a ropivacaine solution, which consisted of 246.25 mg of ropivacaine, 0.5 mg of epinephrine, 30 mg of Toradol, 80 g of clonidine, and 48.45 mL of sterile water, for a total of 100 mL of fluid injected. After the cemented hardened. The tourniquet was released, and hemostasis was obtained. A second gram of transexamic acid was given. The knee was again irrigated. The knee was again taken through range of motion and found to be stable throughout all range of motion of 0-130 , and the patella tracked normally. The fascia was then closed with #2 strata fix suture. The subcutaneous tissue was closed with 3-0 Vicryl and 3-0 strata fix. Dermabond glue was used for the skin and placed with the knee in flexion. The patient was placed in a sterile silver dressing. Patient was then transferred to recovery room in stable condition. The clinical nursing assistant MARK Cardenas was required due the complexity surgery and the need for a skilled assistant front office manager. She assisted in positioning, draping, retraction, and closure of the wound.
--- NOTE | 2017-12-25 17:35 | XR ---
EXAMINATION TYPE: XR knee limited RT DATE OF EXAM: 12/25/2017 COMPARISON: NONE HISTORY: Postop TECHNIQUE: 2 views FINDINGS: There is a right knee prosthesis. Components appear in anatomic position. There is small kn ee joint effusion. IMPRESSION: Knee prosthesis without sign of a complicating process.
[2017-12-25] MEDS: ASPIRIN 325 MG TAB PO SCH (20:34)
[2017-12-25] MEDS ORDERED: SENNOSIDES-DOCUSATE SODIUM 1 EACH TAB PO SCH (21:00)
[2017-12-25] MEDS: ceFAZolin IN SWFI 2 GM/20 ML SYRINGE IVP SCH (23:40)
[2017-12-25] MEDS: SODIUM CHLORIDE 0.9% 1,000 ML IV SCH (23:52)
[2017-12-26] MEDS: SODIUM CHLORIDE 0.9% 1,000 ML IV SCH (05:34)
[2017-12-26] MEDS: LACTATED RINGERS 1,000 ML IV SCH (05:34)
[2017-12-26] MEDS: ASPIRIN 325 MG TAB PO SCH (07:30)
[2017-12-26] MEDS: ceFAZolin IN SWFI 2 GM/20 ML SYRINGE IVP SCH (07:30)
[2017-12-26] MEDS ORDERED: PANTOPRAZOLE 40 MG TABLET PO SCH (07:30)
[2017-12-26 07:58] VITALS: BP 143/72; PULSE 59; RESP 16; TEMP 97.6
[2017-12-26 08:27] LABS: Basophils # (A) 0.1 k/uL (0-0.2); Basophils % (A) 0 %; Eosinophils # (A) 0.2 k/uL (0-0.7); Eosinophils % (A) 1 %; HCT 41.7 % (39.0-53.0); HGB 14.3 gm/dL (13.0-17.5); Lymphocytes # (A) 1.2 k/uL (1.0-4.8); Lymphocytes % (A) 8 %; MCH 31.3 pg (25.0-35.0); MCHC 34.3 g/dL (31.0-37.0); MCV 91.5 fL (80.0-100.0); Mean Platelet Volume 8.8; Monocytes # (A) 0.7 k/uL (0-1.0); Monocytes % (A) 5 %; Neutrophils # (A) 13.1 k/uL (1.3-7.7); Neutrophils % (A) 86 %; Platelet Count 195 k/uL (150-450); RBC 4.56 m/uL (4.30-5.90); RDW 12.9 % (11.5-15.5); WBC 15.3 k/uL (3.8-10.6)
--- NOTE | 2017-12-26 08:55 | CONS ---
CONSULTATION DATE OF CONSULTATION: 12/25/2017 REASON FOR CONSULTATION: Medical management requested by Dr. Cabral. CONSULTATION: This is a 57-year-old patient who has undergone a right total knee arthroplasty by Dr. Cabral. Postprocedure pain is controlled. No nausea, vomiting. No chest pain or short of breath. Chronic stable medical conditions include GERD, hyperlipidemia, coronary artery disease, rheumatoid arthritis. Patient is lying in bed rather comfortable. REVIEW OF SYSTEMS: CONSTITUTIONAL: None. HEENT: None. RESPIRATORY: None. CARDIOVASCULAR: None. GASTROINTESTINAL: None. GENITOURINARY: None. MUSCULOSKELETAL: Pain in different joints. HEMATOLOGICAL: None. LYMPHATICS: None. PSYCHIATRY: None. NEUROLOGICAL: None. PAST HISTORY: Stroke, , GERD, hyperlipidemia, LA x3, enlarged prostate, rheumatoid arthritis. PAST SURGICAL HISTORY: Peptic ulcer disease, appendectomy, cardiac cath, reconstructive surgery of the right hand, right knee open ligament repair, subdural hematoma. Corneal transplant, left eye, left total knee. SOCIAL HISTORY: Patient smokes occasional cigars, alcohol never. FAMILY HISTORY: Father had pancreatic cancer. HOME MEDICATIONS: Omeprazole 20 mg a day, [place] 5 one to two tablets q.4 p.r.n., Lipitor 40 mg at supper, does not take aspirin at home. ALLERGIES: None. PHYSICAL EXAMINATION: Afebrile, pulse 57, respiratory 18, blood pressure 120/72, pulse 95% on 3 L. GENERAL APPEARANCE: Well built, BMI of 32.1, lying in bed comfortable. EYES: Pupils equal, conjunctivae are normal. HEENT: Oral cavity normal. NECK: JVD not raised. Mass not palpable. RESPIRATORY: Effort normal. LUNGS: Fair entry. CARDIOVASCULAR: First and second sounds are normal, no edema. ABDOMEN: Soft, nontender. Liver and spleen not palpable. LYMPHATIC: No lymph node palpable in neck or axillae. PSYCHIATRY: Alert and oriented x3. NEUROLOGICAL: Pupils equal, cranial nerves grossly intact. Power and sensation grossly intact. EXTREMITIES: Right knee in a dressing. Some evidence of osteoarthritis in the hands. INVESTIGATIONS: Blood work from 12/14/2017 shows a white count of 6.3, hemoglobin 16.3, potassium 4.6. UA negative. ASSESSMENT: 1. Right total knee arthroplasty. 2. Peptic ulcer disease. 3. Hyperlipidemia. 4. Coronary artery disease with three myocardial infarctions in the past. 5. BPH. 6. Chronic rheumatoid arthritis. PLAN: Patient's home medications to continue. Patient is getting aspirin for DVT prophylaxis. Patient is to go back on his Protonix, also Valium and pain medications per Dr. Cabral for symptom control. Care was discussed with the patient. Questions were answered. Patient should follow up with his family doctor upon discharge. Thank you Dr. Cabral. SHANI / DEANNEN: [phone] /
[2017-12-26] MEDS ORDERED: MELOXICAM 7.5 MG TAB PO SCH (09:00)
[2017-12-26] MEDS ORDERED: ENOXAPARIN 40 MG/0.4 ML SYRINGE SQ SCH (09:00)
--- NOTE | 2017-12-26 09:17 | P.DS ---
Providers Date of admission: 12/25/17 11:23 Expected date of discharge: 12/26/17 Attending physician: Faraz Cabral Consults: 12/25/17 13:43 Consult Physician Routine Consulting Provider: Kitty Davis Consult Reason/Comments: medical management Do you want consulting provider notified?: Yes 12/25/17 17:33 Consult Physician Routine Consulting Provider: Khoa Dillard Consult Reason/Comments: medical management Do you want consulting provider notified?: Yes Primary care physician: Stated None - Discharge Diagnosis(es) (1) Primary osteoarthritis of right knee Current Visit: Yes Status: Acute (2) S/P total knee arthroplasty Current Visit: Yes Status: Acute Hospital Course: This is a 57-year-old male with known history of degenerative arthritis of the right knee. The patient presents for evaluation. After discussion and consideration patient elects to proceed with total knee arthroplasty. The patient is seen preoperatively by Dr. Cabral and cleared for surgery. Patient is admitted to [facility] on 12/25/2017 for total knee arthroplasty. The procedures performed without complication or sequelae. The patient is doing well postoperatively. Labs and vital signs are stable on day of discharge. On day of discharge patient's knee incision is healing well. There is minimal erythema. There is no drainage noted at this time. There is minimal soft tissue swelling to the knee. Patient has full foot and ankle motion without difficulty or pain. Neurovascular status to the right lower extremity is intact. Patient is discharged home in good condition. Please see med rec for accurate list of home medications. Plan - Discharge Summary Discharge Rx Participant: Yes New Discharge Prescriptions: New Aspirin 325 mg PO BID #60 tab HYDROcodone/APAP 7.5-325MG [[place] 7.5-325] 1 - 2 tab PO Q4-6H PRN #90 tab PRN Reason: Pain Sennosides [Senokot] 1 tab PO BID #60 tablet No Action Atorvastatin [Lipitor] 40 mg PO PC-SUPPER Omeprazole 20 mg PO DAILY Aspirin 325 mg PO BID #60 tab HYDROcodone/APAP 5-325MG [[place] 5-325] 1 - 2 tab PO Q4-6H PRN PRN Reason: Pain Discharge Medication List Atorvastatin [Lipitor] 40 mg PO PC-SUPPER 12/21/16 [History] Omeprazole 20 mg PO DAILY 01/26/17 [History] Aspirin 325 mg PO BID #60 tab 01/03/17 [Rx] HYDROcodone/APAP 5-325MG [[place] 5-325] 1 - 2 tab PO Q4-6H PRN 12/25/17 [History] Aspirin 325 mg PO BID #60 tab 12/26/17 [Rx] HYDROcodone/APAP 7.5-325MG [[place] 7.5-325] 1 - 2 tab PO Q4-6H PRN #90 tab [Rx] Sennosides [Senokot] 1 tab PO BID #60 tablet 12/26/17 [Rx] Follow up Appointment(s)/Referral(s): Faraz Cabral DO [Doctor of Osteopathic Medicine] - 2 Weeks Ambulatory/Diagnostic Orders: Continuous Passive Motion (CPM) Machine [DME.AMB1] Time Frame: 3 Weeks, Location : Determined By Patient Activity/Diet/Wound Care/Special Instructions: Weightbearing as tolerated with a walker CPM 5-6h daily Leave dressing intact. May be removed by home care nurse in 7 days, 01/01/2018. May shower with dressing on. [facility] with questions or concerns [phone] Discharge Disposition: HOME WITH HOME HEALTH SERVICES
[2017-12-26] MEDS ORDERED: ATORVASTATIN 40 MG TAB PO SCH (18:30)
--- NOTE | 2017-12-26 23:50 | P.PN ---
Progress Note - Text Progress Note Date: 12/26/17 DATE OF SERVICE: 12/26/2017 PRESENTING COMPLAINT: Right knee osteoarthritis HISTORY OF PRESENT ILLNESS: 57-year-old male with status post right total knee arthroplasty. INTERVAL HISTORY: 12/26/2017: Patient sitting up in bed, pain well controlled, no nausea, no vomiting, no chest pain, or shortness of breath. Agreeable to work with physical therapy. Tolerating his diet, ambulatory with assistance. Passing gas. REVIEW OF SYSTEMS: Done for constitutional ,cardiovascular, GI, pulmonary with relevant findings as above. CURRENT MEDICATIONS [place], aspirin, Lipitor, Dulcolax, Valium, Vistaril, milk of magnesia, Salazar, Versed, morphine, Narcan, Protonix, Senokot S, fleets enema, normal saline. PHYSICAL EXAM VITAL SIGNS: Temperature 97.6, pulse 59, respirations 16, blood pressure 143/72, oxygen saturation 98% on room air. GENERAL APPEARANCE: . Sitting up on the edge of the bed not in distress. HENT: Normocephalic, JVD not raised. Mass not palpable. Oral cavity normal, external appearance of ears and nose normal. EYES:Pupils equal. Conjunctiva normal. RESPIRATORY: Respiratory effort normal. Lungs clear to auscultation. CARDIOVASCULAR: First and second sounds normal. No edema. ABDOMEN: Soft. Liver and spleen not palpable. No tenderness. No mass palpable. PSYCHIATRY: Alert and oriented x3. Mood and affect normal. MUSCULOSKELETAL: Right knee dressing intact. Some evidence of osteoarthritis in the hands. INVESTIGATIONS: White blood cell count 15.3 ASSESSMENT: -Right total knee arthroplasty -Leukocytosis as an acute phase reactant from surgery. -Peptic ulcer disease -Hyperlipidemia. -Coronary artery disease with 3 myocardial infarctions in the past. -Benign prostatic hypertrophy. -Chronic rheumatoid arthritis. PLAN: Continue aspirin for DVT prophylaxis and prescribed pain medications per orthopedic surgery. From a medical standpoint patient is stable for discharge. QUALIFICATION ENGINEER statement: Patient was seen and examined by nurse practitioner Kitty Blackwell and all elements of the case discussed with attending Dr. Dillard
--- NOTE | 2017-12-27 05:10 | PN ---
PROGRESS NOTE DATE OF SERVICE: 12/26/2017 ATTENDING NOTE: The patient was seen and examined by me. Discussed with nurse practitioner, Ms. Blackwell. The patient is status post right total knee arthroplasty, doing well, up and about with therapy. Pain is controlled. PHYSICAL EXAMINATION: On examination, vital signs noted. Lungs are clear. CARDIOVASCULAR: First and second sounds normal. INVESTIGATIONS: White count 15.3, hemoglobin 14.3. ASSESSMENT: 1. Right total knee arthroplasty. 2. Other medical condition stable. 3. Leukocytosis as a reaction from surgery. Clinically, no evidence of infection. PLAN: Patient is doing well. The patient to follow with his family doctor upon discharge. MMODL / IJN: [id number] /
== END 2017-12-26 14:06 | disposition home or self-care (01) | DRG 470 ==
LOC: 2ORMAIN 11:23 → 3SUR 16:57
PROVIDERS: ADMIT Orthopaedic Surgery; ATTEND Orthopaedic Surgery
PROC: 0SRC069 Replacement of Right Knee Joint with Oxidized Zirconium on Polyethylene Synthetic Substitute, Cemented, Open Approach (ICD-10-PCS; principal; 2017-12-25 13:15)
DX: M17.11 Unilateral primary osteoarthritis, right knee (principal); M06.9 Rheumatoid arthritis, unspecified; D72.829 Elevated white blood cell count, unspecified; E78.5 Hyperlipidemia, unspecified; Z79.82 Long term (current) use of aspirin; Z79.899 Other long term (current) drug therapy; Z82.49 Family history of ischemic heart disease and other diseases of the circulatory system; F17.290 Nicotine dependence, other tobacco product, uncomplicated; I25.10 Atherosclerotic heart disease of native coronary artery without angina pectoris; I25.2 Old myocardial infarction; K21.9 Gastro-esophageal reflux disease without esophagitis; K27.9 Peptic ulcer, site unspecified, unspecified as acute or chronic, without hemorrhage or perforation; N40.0 Benign prostatic hyperplasia without lower urinary tract symptoms; Z80.0 Family history of malignant neoplasm of digestive organs; Z86.73 Personal history of transient ischemic attack (TIA), and cerebral infarction without residual deficits
CPT/HCPCS: 85025; 88300

== ENCOUNTER → 2025-06-05 | Outpatient (CLI) | payer MEDICARE, OTHER ==
[2025-06-05 15:32] LABS: Basophils # (A) 0.06 X 10*3/uL (0.00-0.10); Basophils % (A) 0.9 %; Eosinophils # (A) 0.24 X 10*3/uL (0.04-0.35); Eosinophils % (A) 3.5 %; HCT 44.8 % (39.6-50.0); HGB 15.1 g/dL (13.0-17.0); Immature Grans, Automated 0.60 %; Lymphocytes # (A) 1.80 X 10*3/uL (0.90-5.00); Lymphocytes % (A) 26.0 %; MCH 31.7 pg (27.0-32.0); MCHC 33.7 g/dL (32.0-37.0); MCV 93.9 FL (80.0-97.0); Monocytes # (A) 0.61 X 10*3/uL (0.20-1.00); Monocytes % (A) 8.8 %; NRBC Per 100 WBC 0 X 10*3/uL (0.00-0.01); Neutrophils # (A) 4.17 X 10*3/uL (1.80-7.70); Neutrophils % (A) 60.2 %; Platelet Count 189 X 10*3/uL (140-440); RBC 4.77 X 10*6/uL (4.40-5.60); RDW 12.5 % (11.5-14.5); WBC 6.92 X 10*3/uL (4.50-10.00)
[2025-06-05 19:10] LABS: Anion Gap 11.00 mmol/L (4.00-12.00); BUN/Creat Ratio 13.57 Ratio (12.00-20.00); Blood Urea Nitrogen 9.5 mg/dL (9.0-27.0); Carbon Dioxide 26.0 mmol/L (21.6-31.8); Chloride 106 mmol/L (96-109); Cholesterol 162.00 mg/dL (0.00-200.00); Glucose 151 mg/dL (70-110); HDL Cholesterol 45.90 mg/dL (40.00-60.00); LDL Cholesterol,Calculated 87.9 mg/dL (0.0-131.0); Potassium 4.4 mmol/L (3.5-5.5); Sodium 143 mmol/L (135-145); Triglycerides 141.00 mg/dL (0.00-149.00); VLDL Calculation 28.20 mg/dL (5.00-40.00)
[2025-06-05 19:11] LABS: ALT 189 U/L (10-49); AST 63 U/L (14-35); Albumin 4.7 g/dL (3.8-4.9); Albumin/Globulin Ratio 2.47 Ratio (1.60-3.17); Alkaline Phosphatase 93 U/L (41-126); Bilirubin,Unconjugated 0.35 mg/dL (0.20-1.00); Calcium 10.2 mg/dL (8.7-10.3); Globulin 1.9 g/dL (1.6-3.3); Total Protein 6.6 g/dL (6.2-8.2)
[2025-06-05 19:20] LABS: Hepatitis A Antibody IgM Nonreactive (Nonreactive); Hepatitis B Surface Antigen Nonreactive (Nonreactive); Hepatitis C IgG Antibody Nonreactive (Nonreactive)
[2025-06-05 20:55] LABS: HIV 2 AB Non-Reactive (Non-Reactive); HIV AB P24 Non-Reactive (Non-Reactive); HIV P24 AG Non-Reactive (Non-Reactive); HSV I IgG Interp Positive (Negative); HSV II IgG Interp Negative (Negative)
[2025-06-08 14:47] LABS: C. trachomatis,PCR Negative (Negative); N. gonorrhoeae,PCR Negative (Negative)
== END | disposition home or self-care (01) ==
LOC: LABWHC1 10:50
PROVIDERS: ATTEND Student in an Organized Health Care Education/Training Program
DX: Z11.3 Encounter for screening for infections with a predominantly sexual mode of transmission (principal); I10 Essential (primary) hypertension; E78.5 Hyperlipidemia, unspecified; E66.9 Obesity, unspecified; R73.09 Other abnormal glucose; R74.8 Abnormal levels of other serum enzymes; Z72.3 Lack of physical exercise; Z68.30 Body mass index [BMI] 30.0-30.9, adult
CPT/HCPCS: 36415; 80053; 80061; 80074; 82248; 83036; 85025; 86695; 86696; 86780; 87390; 87491; 87591